=== PATIENT | female | born 1990 | race Caucasian/White ===

== ENCOUNTER → 2022-08-06 17:11 | Outpatient (CLI) | payer OTHER, MEDICAID, SELFPAY | PROVIDERS: Family Provider Family Medicine; Visit Provider Nurse Practitioner Family | DX: J02.9 Acute pharyngitis, unspecified (principal) | CPT/HCPCS: 87070 ==

== ENCOUNTER → 2022-12-25 17:07 | Outpatient (CLI) | payer OTHER, MEDICAID, SELFPAY ==
--- NOTE | 2022-12-25 17:12 | DI.RAD.S_ITS ---
PROCEDURE: XR ANKLE LT MIN 3V INDICATIONS: left ankle sprain/fracture TECHNIQUE: 3 views of the ankle were acquired. COMPARISON: None. FINDINGS: Bones: No acute fractures or dislocations. Ankle mortise is normally aligned. No suspicious bony lesions. Soft tissues: No suspicious soft tissue calcification. IMPRESSION: No acute osseous abnormality. If clinical suspicion and/or symptoms persist, additional imaging with repeat plain films, or advanced imaging (e.g. CT, MRI) may be helpful for further assessment. Approved by: Guille Reynolds M.D. on 12/25/2022 at 17:38
== END ==
PROVIDERS: Family Provider Family Medicine; Referring Provider Physician Assistant; Visit Provider Physician Assistant
DX: M25.572 Pain in left ankle and joints of left foot (principal)
CPT/HCPCS: 73610